=== PATIENT | male | born 1940 | race Caucasian/White ===

== ENCOUNTER → 2018-02-01 | Outpatient (CLI) | payer MEDICARE ==
[~2018-02-01] MED LIST: ASPI-496 PO; EZET10TA18 PO; HYDR-3240 PO; LABE200T3 PO; LISI1TAB7 PO; METH750T87 PO; MULT-257 PO; MULT-658 PO; OMEP-110 PO; TIZA4CAP2 PO
== END | disposition home or self-care (01) ==
LOC: CFH 14:50
PROVIDERS: ATTEND Neurological Surgery
DX: M48.02 Spinal stenosis, cervical region (principal); M48.061 Spinal stenosis, lumbar region without neurogenic claudication; M51.24 Other intervertebral disc displacement, thoracic region; M47.894 Other spondylosis, thoracic region; R26.0 Ataxic gait
CPT/HCPCS: 70551; 72141; 72146